=== PATIENT | female | born 1950 | race Caucasian/White ===

== ENCOUNTER 2023-03-09 09:10 | Emergency (ER) | payer OTHER, SELFPAY ==
--- NOTE | 2023-03-09 09:13 | ED.FALL ---
HPI - Fall General Chief Complaint: Fall Stated Complaint: fall Time Seen by Provider: 03/09/23 09:13 Source: patient Mode of arrival: ambulatory Limitations: no limitations History of Present Illness HPI Narrative: Patient is a 9-year-old female presents with right knee pain after falling Thursday. Patient states her right leg gave out and fell to right side. Patient denies hitting head. Patient states she is able to get up and walk into house. States she has had continued pain with walking and getting out of chairs since. Patient denies any bruising and only has mild swelling. Patient has taken [id number] pain relief with only mild result. Patient has been elevating and icing knee. Patient still able to ambulate unassisted. Denies any numbness tingling to lower extremity Related Data Home Medications Medication Instructions Recorded Confirmed losartan 50 mg tablet 50 mg PO DAILY 03/09/23 03/09/23 Allergies Allergy/AdvReac Type Severity Reaction Status Date / Time No Known Allergies Allergy Verified 03/09/23 09:37 Review of Systems Review of Systems: All systems reviewed & are unremarkable except as noted in HPI and below Constitutional: Constitutional: Denies body ache(s), Denies chills, Denies fatigue, Denies fever(s), Denies headache(s), Denies malaise and Denies weakness Eyes: Eyes: Denies blurry vision, Denies irritation and Denies loss of vision ENT: Denies otalgia, Denies headache(s), Denies nasal discharge, Denies sinus pain and Denies sore throat Cardiovascular: Cardiovascular: Denies chest pain, Denies irregular heart rhythm and Denies dyspnea Respiratory: Respiratory: Denies dyspnea Gastrointestinal: Gastrointestinal: Denies abdominal pain, Denies melena, Denies hematochezia, Denies diarrhea, Denies nausea and Denies vomiting Musculoskeletal: Musculoskeletal: Denies back pain, Denies myalgias, Reports arthralgias and Denies joint swelling Integumentary/Breasts: Skin/Breast: Denies pruritus and Denies rash Neurologic: Denies headache(s), Denies loss of vision and Denies weakness Psychiatric: Psychiatric: Reports no additional psychiatric complaints Endocrine: Endocrine: Denies fatigue PMFSH Comments At time of signature, agree with nursing past medical, surgical, social and family history. There is no relevant family history pertinent to the presenting complaint. Exam Const: General: cooperative, healthy appearing, comfortable, no acute distress and well nourished Nutritional Appearance: well nourished Orientation/consciousness: patient oriented x3 Limitations: no limitations HENMT: Head: normal to inspection, normocephalic and atraumatic Ears: hearing grossly normal bilaterally and external ears normal Face/Nose/Sinus: Normal external nose present, normal facial exam and face symmetric Face and sinus: normal facial exam and face symmetric Mouth: Yes lip normal Eyes: General: appearance normal, both eyes and all related structures Alignment and Position: alignment normal and position normal Periorbital: periorbital findings normal Eyelids: eyelids normal Pupils: Equal, round and reactive pupils present EOM: EOMs intact bilaterally Neck: Neck: normal visual inspection, full ROM and supple Chest: Chest palpation & inspection: normal inspection of the chest Resp: Effort & Inspection: normal respiratory effort and able to speak in complete sentences Auscultation: clear to auscultation bilaterally Cardio: Rate: regular rate Rhythm: regular rhythm Heart sounds: S1 normal heart sound present and S2 normal heart sound present GI: Inspection: normal to inspection Skin: General skin exam: normal color and no rashes or lesions noted Neuro: General: patient oriented x3 and moves all extremities Cranial nerves: Yes Equal, round and reactive pupils present Speech: normal speech Gait exam (Neuro): Normal gait present Extrem: General: normal to inspection, full ROM and no magi
[2023-03-09 09:30] VITALS: BP 162/88; PULSE 88; RESP 16; TEMP 36; O2SAT 96
== END 2023-03-09 09:46 | disposition home or self-care (01) ==
PROVIDERS: Emergency Provider Nurse Practitioner Family; PCP Nurse Practitioner Family
DX: S83.91XA Sprain of unspecified site of right knee, initial encounter (principal); W19.XXXA Unspecified fall, initial encounter; I10 Essential (primary) hypertension
CPT/HCPCS: 99212; G0463

== ENCOUNTER 2023-12-14 15:09 | Emergency (ER) | payer OTHER, SELFPAY ==
[2023-12-14 15:39] VITALS: BP 142/87; PULSE 81; RESP 17; TEMP 36.2; O2SAT 97
[2023-12-14 18:10] VITALS: BP 202/111; PULSE 75; RESP 18; O2SAT 99
[2023-12-14 19:27] VITALS: BP 235/123; PULSE 75; RESP 17; O2SAT 96
--- NOTE | 2023-12-14 19:32 | ED.GENADULT ---
HPI - General Adult General Chief complaint: Neuro Symptoms/Deficit Stated complaint: bells palsy Time Seen by Provider: 12/14/23 19:06 History of Present Illness HPI narrative: Patient is a 73-year-old female who presents the emergency department this evening complaining of left-sided facial droop. Patient states that she noticed it earlier today and admits that brought the past 2 days she has been having some left-sided ear pain. Patient initially thought that she had an ear infection and her daughter did give her some breast milk to put on, however, patient states that did not improve symptoms. Patient denies any previous history of Pike's palsy and is currently denying any additional symptoms including any focal weakness, numbness and tingling, headaches, dizziness, lightheadedness, blurry vision. Patient admits to history of hypertension and states that she takes her blood pressure medication in the evening. There are no other modifying, alleviating, or precipitating factors at this time. Related Data Home Medications Medication Instructions Recorded Confirmed losartan 50 mg tablet 50 mg PO DAILY 03/09/23 12/14/23 Allergies Allergy/AdvReac Type Severity Reaction Status Date / Time No Known Allergies Allergy Verified 12/14/23 20:01 Review of Systems Review of Systems: All systems are reviewed and are negative unless stated otherwise in the HPI. PMFSH Comments Past medical history significant for hypertension. Exam Narrative: General: Alert, awake, afebrile, in no acute distress. HEENT: PERRL, no rhinorrhea, no post nasal drip, oropharynx clear. Neck: Trachea midline, no JVD, no lymphadenopathy. Cardiovascular: Regular rate and rhythm, no murmurs, rubs or gallops, no peripheral edema. Respiratory: Clear to auscultation bilaterally, no tachypnea, no wheezing, no rhonchi, no rubs, no respiratory distress. Abdomen: Soft, nontender, nondistended, no rebound, no guarding, no peritoneal signs. Musculoskeletal: No joint swelling or deformity, normal muscle tone. Skin: No rashes or petechia, no signs of infection. Psychiatric: Alert and oriented, normal behavior and judgment for situation. Neurological: Alert and oriented to person, place, and time. Follows all commands. Left-sided facial droop, intact sensation over all 3 cranial nerve 5 distribution branches, 5/5 motor strength bilateral upper and lower extremity, speech is clear and fluent, gait intact and normal. Course Vital Signs Vital signs: Vital Signs Temperature 97.1 F L 12/14/23 15:39 Pulse Rate 81 12/14/23 15:39 Respiratory Rate 17 12/14/23 15:39 Blood Pressure 142/87 H 12/14/23 15:39 Pulse Oximetry 97 12/14/23 15:39 Oxygen Delivery Room Air 12/14/23 15:39 Temperature 97.1 F L 12/14/23 15:39 Pulse Rate 75 12/14/23 19:27 Respiratory Rate 17 12/14/23 19:27 Blood Pressure 235/123 H 12/14/23 19:27 Pulse Oximetry 96 12/14/23 19:27 Oxygen Delivery Room Air 12/14/23 15:39 Medical Decision Making MDM Narrative Medical decision making narrative: The patient was evaluated by myself in the emergency department. History is obtained from patient who is an independent historian and physical exam was performed. External medical records were reviewed at this time. IV was established. Patient was administered 20mg of IV labetalol for her elevated BP. Differential diagnosis considerations include Pike's palsy versus stroke, although unlikely to be a CVA as droop does include the forehead and patient's remainder of the neurological exam including sensation along her left face is intact. Comorbidities impacting this visit include none. I have evaluated and discussed social determinants of health with the patient that could potentially impact subsequent diagnosis and treatment plans. On repeat assessment of the patient, reevaluation revealed that the patient is doing well and is in no acute distress. Patient s
[2023-12-14] MEDS: LABETALOL HCL INJ 100 MG/20 ML VIAL 20 MG IV PUSH (19:59)
[2023-12-14 20:50] VITALS: BP 172/85; PULSE 62; RESP 14; O2SAT 95
== END 2023-12-14 20:50 | disposition home or self-care (01) ==
PROVIDERS: Emergency Provider Emergency Medicine; PCP Nurse Practitioner Family
DX: G51.0 Bell's palsy (principal); I10 Essential (primary) hypertension
CPT/HCPCS: 96374; 99284